=== PATIENT | female | born 1965 | race Caucasian/White ===

== ENCOUNTER 2018-08-25 04:53 | Inpatient (IN) ==
[2018-08-25] MEDS ORDERED: PEPCID PO ONE (05:51)
[2018-08-25] MEDS ORDERED: MORPHINE IV ONE (05:51)
[2018-08-25] MEDS ORDERED: ZOFRAN IV ONE (05:51)
[2018-08-25] MEDS ORDERED: G.I. COCKTAIL PO ONE (05:51)
[2018-08-25] MEDS ORDERED: NS 1,000 ML IV ONE ×2 (05:51→08:23)
--- NOTE | 2018-08-25 06:11 | PROVIDER DOCUMENTATION ---
HPI-General Adult - General Chief Complaint: Chest Pain Stated Complaint: UPPER STOMACH PAIN/BACK/NECK PAIN Time Seen by Provider: 08/25/18 05:33 Source: patient, family Allergies/Adverse Reactions: Patient Allergies Allergy/AdvReac Type Severity Reaction Status Date / Time amoxicillin Allergy DIARRHEA Verified 01/05/18 09:08 Home Medications: Home Medication List Medication Instructions Recorded Confirmed Last Taken Type Levothyroxine [Synthroid] 175 mcg PO DAILY 11/03/15 01/08/18 01/06/18 06:30 History ATORVAstatin [Lipitor] 80 mg PO HS 05/29/17 01/08/18 01/05/18 20:00 History Aspirin 325 mg PO DAILY 05/29/17 01/08/18 01/06/18 06:30 History Clopidogrel Bisulfate [Plavix] 75 mg PO DAILY 05/29/17 01/08/18 01/06/18 06:30 History Losartan [Cozaar] 25 mg PO DAILY 05/29/17 01/08/18 01/06/18 06:30 History Metoprolol Tartrate 25 mg PO BID 05/29/17 01/08/18 01/06/18 06:30 History Ranolazine E.r. [Ranexa] 500 mg PO BID 05/29/17 01/08/18 01/05/18 20:00 History Sertraline HCl 100 mg PO DAILY 05/29/17 01/08/18 01/06/18 06:30 History Hydrochlorothiazide 25 mg PO DAILY 01/05/18 01/08/18 01/06/18 06:30 History Isosorbide Dinitrate 30 mg PO DAILY 01/05/18 01/08/18 01/06/18 06:30 History - History of Present Illness -Gen Adult Nature of Presenting Problems: Pt presents with epigastric pain and back pain, pt was awoken from sleep with pain at 3am, pt has pmh of CAD with stents and GERD, but unsure if it feels like prior, pt reports pain is sharp, epigastric, radiates to the back, associated with sob, lightheadedness, and nausea, pt denies f/c, phelan, cp, coughh, ap, vomiting, diarrhea, pt is lying in bed in no acute distress. Location of Pain/Injury: reports: abdomen (epigastric), back Pain Radiation: reports: back Quality of Pain: reports: sharp Onset/Duration: reports: 1-3 hours ago Timing: reports: still present Context/Activities at Onset: reports: none Modifying Factors: improves with: nothing Associated Symptoms: reports: dizziness, nausea Similar Symptoms Previously?: Yes Recently seen or treated by another doctor?: No Review of Systems - Adult - REVIEW OF SYSTEMS - ADULT Constitutional: reports: no symptoms reported Eyes: reports: no symptoms reported Ears, Nose, Mouth & Throat: reports: no symptoms reported Cardiovascular: reports: no symptoms reported Respiratory: reports: no symptoms reported Gastrointestinal: reports: see HPI Genitourinary: reports: no symptoms reported Musculoskeletal: reports: see HPI Integumentary: reports: no symptoms reported Neurological: reports: no symptoms reported Psychiatric: reports: no symptoms reported Endocrine: reports: no symptoms reported Hematologic/Lymphatic: reports: no symptoms reported Allergic/Immunologic: reports: no symptoms reported All Other Systems: Reviewed and Negative Past History - Adult - PAST MEDICAL HISTORY-ADULT Review of Records: reports: Old Records Reviewed, Nursing Assessment Review, Medications Reviewed, Social history reviewed & non-contributory. Major Childhood Illnesses: reports: denies history Cardiovascular: reports: HTN Respiratory: reports: denies history Gastrointestinal: reports: other (celiac dz) Obstetrical/Gynecological: reports: denies history Genitourinary: reports: denies history Musculoskeletal: reports: denies history Neurological: reports: denies history Endocrine/Immune: reports: thyroid disorder Other Conditions: reports: denies history - PRIOR SURGERIES/PROCEDURES Surgical/Procedure History: reports: cholecystectomy - IMMUNIZATION STATUS Childhood Immunizations: See Nurse Assessment Flu Vaccine: See Nurse Assessment - FAMILY HISTORY Family History: reviewed, not pertinent Physical Exam-General - PHYSICAL EXAM-ADULT Initial Vital Signs Reviewed: Yes - CONSTITUTIONAL General Appearance: appears well - EYES Eyes: PERRL/EOMI - HEAD, EARS, NOSE, MOUTH & THROAT HENMT: normal ENT inspection - NECK Neck: normal inspection - RESPIRATORY Respiratory: no respiratory distress, no accessory muscle use - CARDIOVASCULAR Cardiovascular: regular rate, rhythm - GASTROINTESTINAL (ABDOMEN) Abdominal Exam: non tender, soft - LYMPHATIC Lymphatic: no adenopathy - MUSCULOSKELETAL Back Exam: normal inspection Extremity: normal range of motion - SKIN Integumentary: normal color - NEUROLOGIC Neurologic: nursing coordinator II-XII nml as tested - PSYCHIATRIC Psych/Mental Status: normal mood/affect Progress - PLAN OF CARE/RESULTS Progress/Plan/Lab Results: Vital Signs - 8 hr 08/25/18 05:00 Temperature 97.9 F Pulse Rate 76 Respiratory Rate 20 Blood Pressure 111/63 O2 Sat by Pulse Oximetry 95 Orders Category Date Time Status cxr [CHEST-1 VIEW] [RAD] Stat Exams 08/25/18 05:50 Taken BLOOD CULTURE [BLDCUL] Stat Lab 08/25/18 05:52 Uncollected CBC WITH ELECTRONIC DIFF [HEME] Stat Lab 08/25/18 05:59 Ordered COMPREHENSIVE METABOLIC PANEL [CHEM] Stat Lab 08/25/18 05:59 Ordered LACTATE, PLASMA [CHEM] Stat Lab 08/25/18 05:50 Uncollected LIPASE [CHEM] Stat Lab 08/25/18 05:59 Ordered PRO B-NATRIURETIC PEPTIDE Stat Lab 08/25/18 05:59 Ordered TROPONIN T Stat Lab 08/25/18 05:59 Ordered URINALYSIS [URINALYSIS] Stat Lab 08/25/18 05:52 Uncollected URINE CULTURE [RM] Stat Lab 08/25/18 05:52 Uncollected 0.9% Sodium Chloride Inj [Ns] 1,000 ml Med 08/25/18 05:51 Active IV 999 mls/hr Famotidine [Pepcid] Med 08/25/18 05:51 Discontinued 40 mg PO NOW ONE Lido/Salcedo Alk/Al&mg Hydrox [G.i. Cocktail] Med 08/25/18 05:51 Discontinued 30 ml PO NOW ONE Morphine Med 08/25/18 05:51 Discontinued 4 mg IV NOW ONE Ondansetron [Zofran] Med 08/25/18 05:51 Discontinued 4 mg IV NOW ONE EKG [EKG] Stat Ther 08/25/18 05:51 Ordered Result Diagrams: 08/25/18 05:24 08/25/18 05:24 - REASSESSMENT Reassessment #1 Time Reassessed: 07:47 Status: improving (chest pain resolved. no distress. lactate elevated but no evidence of infectious process. discussed with hospitalist will admit. states lactate likely secondary to dehydration. will follow) Departure - Departure Date of Disposition Decision: 08/25/18 Time of Disposition Decision: 07:47 DIAGNOSIS: Chest pain Disposition: ADMITTED INPATIENT 09 Certified Medical Emergency: Emergent Condition: Stable Referrals and Follow-Ups: None,PCP [Primary Care Provider] - - Critical Care Note This patient required my direct & personal management of CC.: No Attestation - Physician/ MIRA Attestation Patient care was provided by Advanced Practice Provider:: No The physician spent face to face time with patient:: Yes Advanced Practice Provider documentation review:: Supervising physician onsite and consulted in the evaluation and care of this patient. The physician did have a face to face encounter with the patient.
--- NOTE | 2018-08-25 06:18 | Diag Imaging Result Doc PS360 ---
EXAM: CHEST-1 VIEW HISTORY: chest pain TECHNIQUE: Chest single view COMPARISON: 01/05/2018 FINDINGS: The lungs are well expanded. The heart is not enlarged. The vessels are not distended. There are no infiltrates. No effusion identified. IMPRESSION: Negative exam. Electronically signed by Mason Hopkins 08/25/2018 6:15 AM
[2018-08-25 07:06] LABS: BASO# 0.02 X1000 (0.0-0.2); BASO% 0.3 % (0.0-0.8); EOS# 0.12 X1000 (0.0-0.7); EOS% 1.9 % (0.0-10.0); HEMATOCRIT 42.9 % (37.0-47.0); HEMOGLOBIN 13.7 g/dL (12.0-16.0); LYMPH# 1.38 X1000 (1.2-3.4); LYMPH% 21.9 % (20.5-51.1); MCH 25.5 PG (27-31); MCHC 31.9 g/dL (33-37); MCV 79.9 FL (81-99); MONO# 0.63 X1000 (0.11-0.59); NEUT# 4.14 X1000 (1.4-6.5); NEUT% 65.9 % (42.2-75.2); PLT 178 X1000 (130-400); RBC 5.37 XMIL (4.2-5.4); RDW 15.7 % (11.5-14.5); WBC 6.29 X1000 (4.8-10.8)
[2018-08-25 07:12] LABS: AGAP 13; ALB/GLOB RATIO 1.5; ALBUMIN 4.7 g/dL (3.5-5.0); ALKALINE PHOSPHATASE 112 U/L (32-104); BUN 24 mg/dL (8-22); CALCIUM 10.5 mg/dL (8.8-10.2); CHLORIDE 104 mmol/L (98-107); COSMO 288; CREATININE 0.9 mg/dL (0.5-0.9); ESTIMATED GFR > 60; GLUCOSE 106 mg/dL (70-104); GOT 34 U/L (10-30); GPT 28 U/L (10-36); LIPASE 51 U/L (13-60); POTASSIUM 4.3 mmol/L (3.5-5.1); SODIUM 142 mmol/L (136-145); TCO2 25 mmol/L (25-35); TOTAL BILIRUBIN 0.35 mg/dL (0.20-1.00); TOTAL PROTEIN 7.8 g/dL (6.3-8.3)
--- NOTE | 2018-08-25 07:28 | EKG Report ---
Test Performed on : 08/25/2018 05:20:52 AM Test Reason : chest pain Blood Pressure : / mmHG Vent. Rate : 060 BPM Atrial Rate : 060 BPM P-R Int : 138 ms QRS Dur : 068 ms QT Int : 490 ms P-R-T Axes : 059 040 031 degrees QTc Int : 490 ms Normal sinus rhythm. Nonspecific ST abnormality Prolonged QT Abnormal ECG When compared with ECG of 09-JAN-2018 06:51, ST elevation now present in Inferior leads Nonspecific T wave abnormality has replaced inverted T waves in Inferior leads T wave inversion less evident in Anterior leads Unconfirmed Result
[2018-08-25] MEDS ORDERED: ZOFRAN IV PRN (08:23)
[2018-08-25] MEDS ORDERED: NITROGLYCERIN SL PRN (08:23)
[2018-08-25 08:38] LABS: URINE SOURCE CLEAN CATCH
[2018-08-25 08:43] LABS: BILIRUBIN URINE NEGATIVE (NEGATIVE); BLOOD URINE NEGATIVE (NEGATIVE); COLOR YELLOW; GLUCOSE URINE NEGATIVE (NEGATIVE); KETONE URINE NEGATIVE (NEGATIVE); LEUKOCYTES URINE LARGE (NEGATIVE); NITRITE URINE NEGATIVE (NEGATIVE); PH URINE 5.5; PROTEIN URINE 30 mg/dL (NEGATIVE); SP GRAVITY URINE 1.041; TURBIDITY URINE CLEAR (CLEAR); UR EPITHELIAL CELLS <10 /HPF (<10); URINE BACTERIA NEGATIVE /HPF; URINE RBC <10 /HPF (<10); UROBILINOGEN URINE 2 mg/dL (NORMAL)
[2018-08-25] MEDS: PROTONIX IV SCH ×2 (08:50→20:26)
[2018-08-25] MEDS: PLAVIX PO SCH (08:50)
[2018-08-25] MEDS: ASPIRIN PO SCH (08:50)
[2018-08-25] MEDS: LOVENOX SUBQ SCH (08:50)
--- NOTE | 2018-08-25 08:59 | HISTORY AND PHYSICAL ---
HISTORY OF PRESENT ILLNESS: This is a 52-year-old white female who is followed by her primary care doctor at [facility], Dr. Hurst. She states she had chest pain that really pointed to the epigastric area, low part of her sternum. Started off sharp and then turned into a dull squeezing- type pain. No specific radiation, but she is hurting at the back of her neck and she said she had a headache. The pain started at 3 o'clock this morning. She ate at approximately 6:30 yesterday evening, her last meal. She does not have her gallbladder, but has significant history of coronary artery disease. She is status post angioplasty drug-eluting stent x3 of the proximal left anterior descending in 04/07/2017. Presented with acute chest pain syndrome at that time. Status post subsequent angioplasty stenting of obtuse marginal and the late mid right coronary artery with drug-eluting stents in April 2017, and because of persistent chest pain, she underwent re-evaluation, coronary angiography, which demonstrated her stents were patent. She did have some mid ostial narrowing of the first diagonal branch and also moderate atherosclerotic narrowing of the segment of the right coronary artery proximal to the stent. So they continued medical management. She denies fever or chills. She has had a dry cough for some time. No pleuritic chest pain described. PAST MEDICAL HISTORY: 1. Right femoral artery pseudoaneurysm following her last heart catheterization and that was repaired. 2. Coronary artery disease, as detailed above. 3. Hypertension. 4. Hyperlipidemia. 5. Celiac disease. 6. History of hypothyroidism. 7. History of anxiety. 8. Suspected left ventricular diastolic dysfunction based on echocardiogram. SURGICAL HISTORY: 1. Status post cholecystectomy. 2. Heart stents, as above. 3. Right femoral pseudoaneurysm repair. ALLERGIES: She is allergic or intolerant to amoxicillin which causes diarrhea. SOCIAL HISTORY: She does not smoke or use alcohol. She lives here on the [place] [facility] [place]. Primary care physician is at [facility]. FAMILY HISTORY: Positive for coronary artery disease. REVIEW OF SYSTEMS: General: She did not describe weight gain or loss, fever or chills. HEENT: No complaints of visual or hearing changes. She has had headache this morning following her chest pain and some posterior neck discomfort. No recent trauma described. Respiratory: No increased work of breathing or dyspnea. Cardiovascular: As noted above. No complaints of palpitation. Just lower sternal epigastric pain. GI/: She did state her urine was dark in color, but did not complain of dysuria or gross hematuria. No complaints of blood in stool, but she does have underlying celiac disease or history. Musculoskeletal/Neurologic: No focal complaints. Endocrinologic: She has history of hypothyroidism. PHYSICAL EXAMINATION: GENERAL: In the emergency room, she is eating breakfast at this time and awake and alert, pleasant. VITAL SIGNS: Temperature 97.9 degrees, pulse 56, respirations 18, blood pressure 82/54. NECK: No distended neck veins. CVP appears to be less than 6 cm in the right atrium. Neck was supple. No thyromegaly. Carotid, radial, femoral pulses 2+ and symmetrical. LUNGS: Clear anterior and posterior. ABDOMEN: Soft, nondistended. Positive bowel sounds no pedal edema. SKIN: Warm and dry. No rash is appreciated. Conjunctiva pink. Sclerae clear. LABORATORY/DIAGNOSTIC DATA: White count 6290, hematocrit is 42, platelet count is 178,000. Sodium was 142, potassium 4.3, chloride 104, BUN was 24, creatinine 0.9, blood sugar 106, calcium was 10.5, AST is 34, ALT is 28, alkaline phosphatase was 112. Total protein 7.8, albumin 4.7, lipase 51. Apparently, stool sample was positive. She has had 2 stools for blood pending at this time. Her chest x-ray: Negative examination. Lungs well expanded. Heart was not enlarged. Vessels were not distended. Troponin was less than 0.01. EKG shows sinus rhythm. I did not appreciate significant ST-segment deviation. HOME MEDICATION: Lipitor 80 mg a day, aspirin 325 mg a day, Plavix 75 mg a day, hydrochlorothiazide 25 mg a day, isosorbide dinitrate 30 mg daily, Synthroid 175 mcg a day, Cozaar 25 mg a day, metoprolol 25 mg b.i.d., Ranexa ER 500 mg b.i.d., sertraline or Zoloft is the trade name 100 mg daily. ASSESSMENT: 1. Chest pain in someone with known coronary artery disease, multivessel. Her last heart catheterization, which I think was in December, she had 3 stents that were open. She did have some mild ostial narrowing of the 1st diagonal branch. Also moderate atherosclerotic narrowing of the segment of the mid right coronary artery. She has negative enzymes EKG, but I think we need to make sure that she is not having ongoing coronary ischemia. I will ask Cardiology to evaluate. We will check serial cardiac enzymes. 2. History of celiac disease. Aware. 3. Epigastric pain. We will put her on a proton pump inhibitor. This also could be symptoms of peptic ulcer. 4. History of hypertension. 5. History of hyperlipidemia. 6. Last heart catheterization, she had a right femoral artery pseudoaneurysm which I think was repaired. PLAN: Blood pressure seems a little on the low side. Johanna checked the blood pressure manually and it was 120/60, so it appears blood pressure may be a little better than recorded earlier. We are not going to change her medications at this point. We will get Cardiology. We will assess her a.m. cortisol level. We will get a T4, TSH, B12, folate, and as far as her volume status, it looks pretty good. Her BUN was 24, mildly elevated. Her creatinine and hemoglobin looked good, so no sign of blood loss. cc: Darío Goodman MD
[2018-08-25] MEDS: TYLENOL PO PRN ×2 (10:13→20:35)
[2018-08-25] MEDS: ZOLOFT PO SCH (10:14)
[2018-08-25] MEDS: SYNTHROID PO SCH (10:14)
[2018-08-25] MEDS: RANEXA PO SCH ×2 (10:14→20:26)
[2018-08-25] MEDS: IMDUR PO SCH (10:14)
[2018-08-25 10:33] LABS: C REACTIVE PROT QUANT 0.79 mg/L (0.00-5.00)
[2018-08-25 12:35] LABS: HEMOGLOBIN A1C 5.4 % (4.8-6.0)
[2018-08-25 12:55] LABS: FREE T4 1.05 ng/dL (0.93-1.70); TSH 2.97 uIUmL (0.27-4.20)
--- NOTE | 2018-08-25 14:14 | CARDIOLOGY CONSULTATION ---
DATE: 08/25/2018 HISTORY OF PRESENT ILLNESS: Ms. Powers is a 52-year-old, lady with history of known coronary artery disease who comes in with complaints of epigastric and lower sternal chest discomfort with radiation to the back. She said she ate a meal at 6:30 and after that she had this pain which started. She has not had any radiation to the upper part of her chest or to the left arm. However, she has had some radiation to her back. She has had stent placement in the past with drug-eluting stents. The symptoms are not associated with any diaphoresis or shortness of breath. She came to the emergency room was admitted, was ruled out for myocardial infarction by cardiac enzymes. She has significant cardiac history as listed below. REVIEW OF SYSTEMS: A 14-point review of systems was done.GI System: There is no history of nausea, vomiting, diarrhea. There is no history of hematemesis or melena. Central nervous system: No focal weakness to suggest a CVA, TIA. System: There is no dysuria or hematuria. PAST MEDICAL HISTORY: 1. On 04/09/2017 she had a drug-eluting stent to the mid right coronary artery and drug-eluting stent to circumflex artery. Prior to that, she had a proximal stent to the left anterior descending artery. Last cardiac catheterization was done in 2018. Stents were patent. 2. History of diastolic heart failure. 3. Hypertension. 4. Hyperlipidemia. 5. Hypothyroidism. 6. Celiac disease. 7. Cholecystectomy. HOME MEDICATIONS: 1. Aspirin. 2. Atorvastatin. 3. Lipitor. 4. Hydrochlorothiazide. 5. Synthroid. 6. Cozaar. 7. Metoprolol. 8. Ranexa. 9. Sertraline. PHYSICAL EXAMINATION: Vital Signs: Blood pressure was 103/66 and 82/54. Patient does not complain of chest pain. HEENT: Atraumatic, normocephalic. Pupils were equal and reacting to light. Cardiovascular: On exam, jugular venous pressure was normal first and second heart sounds were heard. There is no S3, S4 or gallop. Respiratory: Normal air entry. There are no crepitations or rhonchi. Abdomen: Soft, nontender. There was no guarding or rigidity. Bowel sounds were heard. Central nervous system: Alert and was moving all 4 extremities. Extremities: Examination of extremities revealed no pedal edema. LABORATORY STUDIES: She was ruled out for myocardial infarction by cardiac enzymes. Other laboratory revealed a sodium 142, potassium 4.3, BUN 24, creatinine 0.9, calcium 10.15. WBC 6.2, hemoglobin 13.7, platelet count 178,000. ASSESSMENT AND PLAN: Ms. Catherine Powers is a 52-year-old, lady with history of hypertension, celiac disease, hyperlipidemia, coronary artery disease with multiple coronary interventions with stent placement to left anterior descending artery, circumflex artery as well as right coronary artery who comes in with complaints of epigastric discomfort radiating to the back. She was ruled out for myocardial infarction by cardiac enzymes. RECOMMENDATIONS: 1. We will set her up to undergo an echocardiogram to assess cardiac and valvular function. Given symptoms, known coronary artery disease, as this could be angina equivalent, we will make sure there is no ischemia. Even though her symptoms were mainly in the epigastric region, we will set up to undergo a Lexiscan Cardiolite stress test to rule out for and assess for ischemia. 2. She has celiac disease. Symptoms are under control. Her frame straightener had performed an upper GI endoscopy in the past. No known ulcers in the stomach or duodenal. 3. Hypothyroidism. Continue with the current medications. I have not made any other changes to her medications. Thank you for the consult. cc: Robert Castro MD
[2018-08-25] MEDS: LIPITOR PO SCH (20:25)
[2018-08-25] MEDS: LOPRESSOR PO SCH ×2 (20:25→20:32)
[2018-08-25] MEDS: SODIUM CHLORIDE 0.9% INJ SCH (20:26)
[2018-08-25] MEDS ORDERED: LOPRESSOR PO SCH (21:00)
--- NOTE | 2018-08-25 21:54 | ECHO REPORT ---
ORDER DATE: 08/25/2018 MEASUREMENTS: Left ventricular internal diameter diastole 4.7, end systole 2.7, septal thickness 0.8, posterior wall thickness 0.9, left atrium 3.3, aortic root 3.2. SUMMARY: 1. Fair quality study. 2. Aortic valve is trileaflet and opens normally on 2-dimensional images. Peak gradient across the aortic valve is approximately 10 mmHg. There is mild aortic regurgitation. Mitral, tricuspid, and pulmonic valves are without evidence of structural abnormality with trace mitral regurgitation and mild tricuspid regurgitation. The estimated systolic PA pressure by Doppler is 35 mmHg. The aortic root is normal in size. 3. Normal left ventricular dimension is demonstrated. Estimated left ejection fraction appears to be at least 65%. No regional wall motion abnormality is evident. Left atrium, right atrium and right ventricle are normal size with grossly preserved right ventricular systolic function. 4. No pericardial effusion. 5. Appearance of inferior vena cava suggests normal central venous pressure. CONCLUSIONS: 1. Mild aortic regurgitation. 2. Mild tricuspid regurgitation with estimated systolic PA pressure of 35 mmHg. 3. Normal left ventricular systolic function without wall motion abnormality evident. cc: MD Yesica Gleason PA
[2018-08-26 06:55] LABS: INR 0.96; PROTIME 13.5 Seconds (11.0-16.0)
[2018-08-26 06:56] LABS: BASO# 0.01 X1000 (0.0-0.2); BASO% 0.2 % (0.0-0.8); EOS# 0.11 X1000 (0.0-0.7); EOS% 2.1 % (0.0-10.0); HEMATOCRIT 37.4 % (37.0-47.0); HEMOGLOBIN 11.5 g/dL (12.0-16.0); LYMPH# 1.33 X1000 (1.2-3.4); LYMPH% 25.3 % (20.5-51.1); MCH 25.7 PG (27-31); MCHC 30.7 g/dL (33-37); MCV 83.7 FL (81-99); MONO# 0.46 X1000 (0.11-0.59); MONO% 8.7 % (1.7-9.3); NEUT# 3.35 X1000 (1.4-6.5); NEUT% 63.7 % (42.2-75.2); PLT 128 X1000 (130-400); PTT 31.2 Seconds (22.3-41.8); RBC 4.47 XMIL (4.2-5.4); RDW 15.9 % (11.5-14.5); WBC 5.26 X1000 (4.8-10.8)
[2018-08-26 07:29] LABS: AGAP 7; ALB/GLOB RATIO 1.5; ALBUMIN 3.5 g/dL (3.5-5.0); ALKALINE PHOSPHATASE 93 U/L (32-104); BUN 16 mg/dL (8-22); CALCIUM 8.6 mg/dL (8.8-10.2); CHLORIDE 110 mmol/L (98-107); COSMO 289; CREATININE 0.8 mg/dL (0.5-0.9); ESTIMATED GFR > 60; GLUCOSE 113 mg/dL (70-104); GOT 24 U/L (10-30); GPT 28 U/L (10-36); MAGNESIUM 2.3 mg/dL (1.5-2.7); POTASSIUM 4.5 mmol/L (3.5-5.1); SODIUM 144 mmol/L (136-145); TCO2 27 mmol/L (25-35); TOTAL BILIRUBIN 0.27 mg/dL (0.20-1.00); TOTAL PROTEIN 5.9 g/dL (6.3-8.3)
[2018-08-26] MEDS ORDERED: LEXISCAN ONE (08:02)
--- NOTE | 2018-08-26 08:08 | EKG Report ---
Test Performed on : 08/26/2018 07:02:36 AM Test Reason : chest pain Blood Pressure : / mmHG Vent. Rate : 058 BPM Atrial Rate : 058 BPM P-R Int : 134 ms QRS Dur : 084 ms QT Int : 492 ms P-R-T Axes : 063 046 040 degrees QTc Int : 482 ms Sinus bradycardia. Low voltage QRS Prolonged QT Abnormal ECG When compared with ECG of 25-AUG-2018 05:20, (Unconfirmed) No significant change was found Unconfirmed Result
[2018-08-26] MEDS: ASPIRIN PO SCH (10:31)
[2018-08-26] MEDS: IMDUR PO SCH (10:31)
[2018-08-26] MEDS: PLAVIX PO SCH (10:31)
[2018-08-26] MEDS: RANEXA PO SCH ×2 (10:32→20:11)
[2018-08-26] MEDS: LOPRESSOR PO SCH ×3 (10:32→20:12)
[2018-08-26] MEDS: ZOLOFT PO SCH (10:32)
[2018-08-26] MEDS: SYNTHROID PO SCH (10:32)
[2018-08-26] MEDS: LOVENOX SUBQ SCH (11:21)
[2018-08-26] MEDS: PROTONIX IV SCH ×2 (11:25→20:10)
[2018-08-26] MEDS: SODIUM CHLORIDE 0.9% INJ SCH ×2 (11:26→20:10)
[2018-08-26] MEDS: MORPHINE IV PRN ×3 (11:43→20:09)
--- NOTE | 2018-08-26 13:45 | Diag Imaging Result Document ---
PROCEDURE NAME: MYOCARDIAL PERF SCAN, STR/REST - 08/25/2018 PROCEDURE PERFORMED: Lexiscan Cardiolite stress test. DESCRIPTION OF PROCEDURE: Lexiscan was infused per standard protocol. There was no chest pain. Stress electrocardiogram was negative for ischemia. Cardiolite was injected. There were 31.8 mCi of Cardiolite injected for the rest phase and 34.8 mCi of Cardiolite injected for the stress phase. Gated rest and stress images were obtained in standard views. Images revealed normal left ventricular cavity size. There is a low-grade reversible perfusion defect in the distal anteroapical wall. This could represent attenuation defect as well. Would recommend clinical correlation. Left ventricular ejection fraction 89%. CONCLUSIONS: 1. No chest pain. 2. Negative Lexiscan stress electrocardiogram. 3. Myocardial perfusion images revealed a low-grade reversible perfusion defect in the distal anteroapical wall. This could represent attenuation defect as well. Would recommend clinical correlation. 4. Left ventricular ejection fraction by gated SPECT is 89%. cc: MD Yesica Tabor PA
[2018-08-26] MEDS ORDERED: ROCEPHIN 1 GM in NS 50 ML IV ONE (14:42)
--- NOTE | 2018-08-26 17:24 | PROGRESS NOTE ---
DATE: 08/26/2018 SUBJECTIVE: She had her Myoview GXT done today, and they are planning on doing a left heart catheterization tomorrow. She has not had any further chest pain. She is not short of breath. No discomfort right now breathing comfortably. OBJECTIVE: Temperature 97.6 degrees, pulse 63, respirations 16, blood pressure 111/66. Pupils are equal and round. No distended neck veins. Lungs are clear in all lung alcantar. Cardiovascular: Regular rhythm and rate without murmur or S3. Abdomen is soft. Skin is warm and dry. ASSESSMENT AND PLAN: 1. Given her significant coronary artery disease and chest pain and several coronary stents, the plan is a left heart catheterization in the morning. We are going to stop her Lovenox, given her low platelet count. We will check her platelets again in the morning. 2. Treating her for sediment. I am not sure she has true UTI, but we will give her some antibiotics empirically. 3. Echocardiogram with Doppler. Mild aortic regurgitation, mild tricuspid regurgitation. Estimated systolic PA pressure was 35 mmHg. Normal left ventricular function without wall motion abnormalities. 4. Myocardial perfusion scan. There is no chest pain. Negative Lexiscan stress EKGs. Myocardial perfusion images revealed low-grade reversible perfusion defect in the distal anterior apical wall. Could represent attenuation defect, but they plan to do a heart catheterization. Her left ventricular ejection fraction was 89%, so good left ventricular performance. 5. Review of her lab. Enzymes are negative. Cholesterol profile: LDL was 51, and her triglyceride was 165. 6. Review of her orders. I do not see any change at this point. cc: Darío Goodman MD
[2018-08-26] MEDS: LIPITOR PO SCH (20:11)
[2018-08-27 07:31] LABS: BASO# 0.01 X1000 (0.0-0.2); BASO% 0.2 % (0.0-0.8); EOS# 0.09 X1000 (0.0-0.7); EOS% 2.2 % (0.0-10.0); HEMATOCRIT 39.7 % (37.0-47.0); HEMOGLOBIN 12.3 g/dL (12.0-16.0); LYMPH# 0.74 X1000 (1.2-3.4); LYMPH% 17.9 % (20.5-51.1); MCH 25.7 PG (27-31); MCV 83.1 FL (81-99); MONO# 0.33 X1000 (0.11-0.59); NEUT# 2.96 X1000 (1.4-6.5); NEUT% 71.7 % (42.2-75.2); PLT 132 X1000 (130-400); RBC 4.78 XMIL (4.2-5.4); RDW 16.2 % (11.5-14.5); WBC 4.13 X1000 (4.8-10.8)
[2018-08-27 07:43] LABS: AGAP 9; BUN 14 mg/dL (8-22); CHLORIDE 108 mmol/L (98-107); COSMO 291; CREATININE 0.7 mg/dL (0.5-0.9); ESTIMATED GFR > 60; GLUCOSE 104 mg/dL (70-104); POTASSIUM 4.7 mmol/L (3.5-5.1); SODIUM 146 mmol/L (136-145); TCO2 29 mmol/L (25-35)
[2018-08-27] MEDS ORDERED: HEPARIN 1000 UNITS/NS 2,000 UNIT/1,000 ML IV.SOLN ONE (08:34)
[2018-08-27] MEDS: ASPIRIN PO SCH (09:11)
[2018-08-27] MEDS: LOPRESSOR PO SCH (09:12)
[2018-08-27] MEDS: SYNTHROID PO SCH (09:12)
[2018-08-27] MEDS: RANEXA PO SCH (09:12)
[2018-08-27] MEDS: IMDUR PO SCH (09:12)
[2018-08-27] MEDS: PLAVIX PO SCH (09:12)
[2018-08-27] MEDS: TYLENOL PO PRN (09:13)
[2018-08-27] MEDS: PROTONIX IV SCH (09:32)
[2018-08-27] MEDS: ZOLOFT PO SCH (10:00)
[2018-08-27] MEDS ORDERED: NS 500 ML ONE (11:13)
[2018-08-27] MEDS ORDERED: VERSED ONE (11:13)
[2018-08-27] MEDS ORDERED: MORPHINE ONE (11:13)
[2018-08-27] MEDS ORDERED: CLAVE TWINSITE 32 IN 11959 ONE (11:13)
[2018-08-27] MEDS ORDERED: MAALOX PLUS LIQUID PO PRN (13:37)
[2018-08-27] MEDS ORDERED: NS 500 ML IV SCH (13:45)
--- NOTE | 2018-08-27 14:39 | EKG Report ---
Test Performed on : 08/27/2018 1:23:22 PM Test Reason : S/P LHC Blood Pressure : / mmHG Vent. Rate : 059 BPM Atrial Rate : 059 BPM P-R Int : 146 ms QRS Dur : 084 ms QT Int : 458 ms P-R-T Axes : 061 057 019 degrees QTc Int : 453 ms Sinus bradycardia. with sinus arrhythmia. Otherwise normal ECG When compared with ECG of 26-AUG-2018 07:02, No significant change was found Unconfirmed Result
[2018-08-27] MEDS ORDERED: ROCEPHIN 1 GM in NS 50 ML IV SCH (15:00)
[2018-08-27 16:16] VITALS: BP 102/78
[2018-08-27] MEDS ORDERED: G.I. COCKTAIL PO ONE (17:03)
--- NOTE | 2018-08-27 18:06 | DISCHARGE SUMMARY ---
ADMISSION DATE: 08/25/2018 DISCHARGE DATE: 08/27/2018 HISTORY OF PRESENT ILLNESS: This is a 52-year-old who was admitted on 08/25/2018. She has no primary care physician. She was discharged on 08/27/2018. A 52-year-old white female followed by a doctor at [facility], States she had chest pain, pointing to the epigastric area and lower part of the sternum. Started sharp and then turned a dull, squeezing type pain. No specific radiation, but she is hurting in the back of her neck. Said she had a headache. The pain started about 3 o'clock that morning. She ate approximately 6:30 the evening before, 6:30 p.m. Status post angioplasty drug-eluting stent x3 in the proximal left anterior descending on 04/07/2017. Presented again with acute chest pain syndrome at that time. Status post subsequent angioplasty stenting of obtuse marginal in the late mid right coronary artery, drug-eluting stents in April 2017. Because of persistent chest pain, she underwent evaluation, and coronary angiography demonstrated her stents were patent. She did have some mild ostial narrowing in the first diagonal branch and also moderate atherosclerotic narrowing of the segment of the right coronary artery proximal to the stent. She continued the medical management. PAST MEDICAL HISTORY: 1. 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 That was repaired. 2. Coronary artery disease. 3. Hypertension. 4. Hyperlipidemia. 5. Celiac disease. 6. History of hypothyroidism. 7. History of anxiety. 8. Suspect left ventricular diastolic dysfunction based on echocardiogram. So admitted with chest pain and the cardiac enzymes were unremarkable. Cardiology evaluated. She did undergo an echocardiogram to look at the left ventricular function. Serial cardiac enzymes showed no sign of ischemia. EKG with no sign of ischemia. Underwent myocardial perfusion scan 08/25/2018; no chest pain, negative with Lexiscan. EKG myocardial perfusion images revealed low- grade reversible perfusion defect in the distal anterior septal wall, could represent attenuation defect as well, and so they scheduled her for a left heart catheterization. Her left heart catheterization showed no significant change. Echocardiogram on 08/25/2018: Mild aortic regurgitation. Mild tricuspid regurgitation. Estimated systolic PA pressure 35 mmHg. Normal left ventricular systolic function. No wall motion abnormalities. So the heart catheterization showed no change and decided to continue current medications. Did not appear she was having coronary ischemia so I have her on Lipitor 80 mg a day, aspirin 325 mg a day, Plavix 75 mg a day, hydrochlorothiazide 25 mg a day, isosorbide dinitrate 30 mg a day, Synthroid 175 mcg a day, losartan 25 mg a day, metoprolol 25 mg b.i.d., nitroglycerin sublingual as needed, Ranexa 500 mg b.i.d., Zoloft or sertraline 100 mg daily, Lopressor was 12.5 mg b.i.d., and she was taking 25 mg twice a day. Looking at her blood pressures, I think we will go back to her 25 mg twice a day, although blood pressure stayed between 102 and 136, so we will go down to 12.5 twice a day instead. cc: Darío Goodman MD MTDD
--- NOTE | 2018-09-03 22:01 | CARDIAC CATH REPORT ---
PROCEDURE NAME: - PROCEDURE PERFORMED: Left heart catheterization and selective coronary angiography. ENTRY SITE: Right femoral artery. CATHETERS USED: 5-[place] JL4, 3DRC, and angled pigtail. TECHNIQUE: After intravenous sedation with Versed and morphine, local anesthesia with lidocaine was applied over right femoral artery. Arterial access was established with placement of a 5- [place] sheath in the right femoral artery using modified Seldinger technique. Selective coronary angiography was performed followed by left heart catheterization and left ventriculography. The patient tolerated the procedure without apparent complications. FINDINGS: Hemodynamics: Aortic pressure 132/72, left ventricular pressure 142 over EDP of 15. Comments: On hemodynamics, there is no significant gradient across the aortic valve demonstrated on pullback from left ventricle. Angiography: 1. Left ventriculogram: The left ventricle is of normal size without regional wall motion abnormality evident on KRUEGER projection. Estimated left ejection fraction appears to be at least 65%. There is no significant mitral regurgitation. 2. Left main coronary: The left main coronary is free of significant coronary stenosis. 3. Left anterior descending coronary: The left anterior descending coronary demonstrates a stent proximally that jails the medium size second diagonal branch. The stent is widely patent. Just distal to the stent is a focal area of mild (30%) stenosis. A small first diagonal branch arises from the left anterior descending coronary proximally just before the stent. The remainder of the left anterior descending coronary artery and its branches are free of significant coronary stenosis. 4. Left circumflex: The left circumflex coronary artery demonstrates a stent proximally, which is widely patent. The remainder of the left circumflex coronary artery branches are free of significant coronary stenosis. 5. Right coronary: The dominant right coronary artery demonstrates a focal area of mild (40%) stenosis proximally. There is a stent at midvessel in the right coronary, which is widely patent. CONCLUSIONS: 1. Normal left ventricular systolic function without wall motion abnormality evident on KRUEGER projection. 2. Right dominant coronary anatomy with patent stent in proximal left anterior descending coronary, proximal circumflex coronary, and mid right coronary. Patient demonstrates mild coronary atherosclerosis just distal to stent in left anterior descending coronary at ostium of second diagonal branch which is jailed by stent in left anterior descending coronary, and proximally and right coronary. RECOMMENDATIONS: 1. Continue medical management of patient's coronary atherosclerosis. 2. Consider alternative etiologies for patient's chest symptoms. cc: Julian Sin MD
== END 2018-08-27 18:31 | disposition home or self-care (01) | DRG 287 ==
LOC: ED 04:53 → 3N 08:46 → 3S 08-27 13:06
PROVIDERS: ATTEND Emergency Medicine
CPT/HCPCS: 71010; 71045; 78452; 80048; 80053; 80061; 81001; 82533; 82550; 82607; 82746; 83036; 83605; 83690; 83721; 83735; 83880; 84439; 84443; 84484; 85025; 85610; 85730; 86140; 87040; 87077; 87088; 87186; 93005; 93010; 93017; 93306; 93458; 94761; 96372; 96374; 96375; 99285; A9270; A9500; C9113; J0696; J1644; J1650; J2250; J2270; J2405; J2785; J7030; J7040; Q9967; S0164